=== PATIENT | male | born 1980 | race Caucasian/White ===

== ENCOUNTER 2021-01-25 10:00 | Inpatient (IN) | payer OTHER ==
[~2021-01-25] VITALS: Ht 182.9 cm; Wt 115.9 kg
[2021-01-25] MEDS ORDERED: PARO25TA8 PO (10:24)
[2021-01-25] MEDS ORDERED: LISI10TA22 PO ×2 (10:24→23:09)
[2021-01-25] MEDS ORDERED: PRAZ5CAP PO ×2 (10:24→23:09)
[2021-01-25] MEDS ORDERED: BACITRACIN OINTMENT 30GM TUBE TOP ONE (10:55)
[2021-01-25] MEDS ORDERED: BACITRACIN OINTMENT 30GM TUBE TOP PRN (10:55)
[2021-01-25 11:12] LABS: HEMATOCRIT 45.6 % (42.0-52.0); HEMOGLOBIN 15.7 g/dl (13.5-17.5); MEAN CORPUSCULAR HEMOGLOBIN 28.9 pg (27.0-33.0); MEAN CORPUSCULAR HGB CONC 34.4 g/dl (32.0-36.5); PLATELET COUNT, AUTOMATED 229 10^3/uL (150-450); RED BLOOD COUNT 5.43 10^6/uL (4.30-6.10); WHITE BLOOD COUNT 6.1 10^3/uL (4.0-10.0)
[2021-01-25 11:19] LABS: RSV AMPLIFICATION NEGATIVE (NEGATIVE)
[2021-01-25 11:39] LABS: AMPHETAMINES LEVEL URINE NEGATIVE (NEGATIVE); BARBITURATES URINE NEGATIVE (NEGATIVE); BENZODIAZEPINES URINE NEGATIVE (NEGATIVE); CANNABINOIDS URINE NEGATIVE (NEGATIVE); COCAINE METABOLITE URINE NEGATIVE (NEGATIVE); METHADONE URINE NEGATIVE (NEGATIVE); OPIATES URINE NEGATIVE (NEGATIVE); PHENCYCLIDINE URINE NEGATIVE (NEGATIVE)
[2021-01-25 11:45] LABS: ACETAMINOPHEN LEVEL < 2.0 UG/ML (10.0-30.0); ALBUMIN 4.6 GM/DL (3.2-5.2); ALT/SGPT 70 U/L (12-78); BILIRUBIN,DIRECT 0.1 MG/DL (0.0-0.2); BILIRUBIN,TOTAL 0.4 MG/DL (0.2-1.0); BLOOD UREA NITROGEN 14 MG/DL (7-18); CALCIUM LEVEL 9.4 MG/DL (8.5-10.1); CARBON DIOXIDE LEVEL 27 MEQ/L (21-32); CHLORIDE LEVEL 106 MEQ/L (98-107); CREATININE FOR GFR 0.99 MG/DL (0.70-1.30); ETHYL ALCOHOL (ETHANOL) < 0.003 % (0.000-0.010); GLOMERULAR FILTRATION RATE > 60.0 (>60); GLUCOSE, FASTING 114 MG/DL (70-100); POTASSIUM SERUM 4.5 MEQ/L (3.5-5.1); SALICYLATE LEVEL < 1.7 MG/DL (5.0-30.0); SODIUM LEVEL 139 MEQ/L (136-145); TOTAL PROTEIN 7.5 GM/DL (6.4-8.2)
[2021-01-25] MEDS ORDERED: PAXI10TA12 PO (23:09)
[2021-01-25] MEDS ORDERED: PAXI40TA10 PO (23:09)
[2021-01-25] MEDS ORDERED: OSTETAB2 PO (23:10)
[2021-01-25] MEDS ORDERED: FISH1000 PO (23:10)
[2021-01-25] MEDS ORDERED: GNPTAB94 PO (23:10)
[2021-01-25] MEDS ORDERED: SFHIBU200 PO (23:10)
[2021-01-25] MEDS ORDERED: HOME MED LIST COMPLETE! XX SCH (23:10)
[2021-01-25] MEDS ORDERED: VITMTA PO (23:10)
[2021-01-25] MEDS ORDERED: RA T500C2 PO (23:10)
[2021-01-26] MEDS ORDERED: NICO2LOZ8 MT (00:03)
[2021-01-26] MEDS ORDERED: BEAN300T PO (00:03)
[2021-01-26] MEDS ORDERED: MAALOX 30 ML SUSP *UDC PO PRN (00:15)
--- OUTSIDE RECORDS SUMMARY | 2021-01-26 00:23 | CCD ---
Author Author [facility] [place] [facility] Address Unknown Phone Unavailable Support Name Relationship Address Phone [facility] Next Of Kin [address] [place] [address] Unavailable Re-disclosure Warning The records that you are about to access may contain information from federally-assisted alcohol or drug abuse programs. If such information is present, then the following federally mandated warning applies: This information has been disclosed to you from records protected by federal confidentiality rules (42 CFR part 2). The federal rules prohibit you from making any further disclosure of this information unless further disclosure is expressly permitted by the written consent of the person to whom it pertains or as otherwise permitted by 42 CFR part 2. A general authorization for the release of medical or other information is NOT sufficient for this purpose. The Federal rules restrict any use of the information to criminally investigate or prosecute any alcohol or drug abuse patient.The records that you are about to access may contain highly sensitive health information, the redisclosure of which is protected by Article 27-F of the [facility] Public Health law. If you continue you may have access to information: Regarding HIV / AIDS; Provided by facilities licensed or operated by the [facility] Office of Mental Health; or Provided by the [facility] Office for People With Developmental Disabilities. If such information is present, then the following [facility] mandated warning applies: This information has been disclosed to you from confidential records which are protected by state law. State law prohibits you from making any further disclosure of this information without the specific written consent of the person to whom it pertains, or as otherwise permitted by law. Any unauthorized further disclosure in violation of state law may result in a fine or shelter sentence or both. A general authorization for the release of medical or other information is NOT sufficient authorization for further disc losure. Immunizations Vaccine Date Status Description Data Source(s) COVID-19 VACCINE Pfizer 05/12/2020 12:00:00 AM EDT completed [facility] Vaccine Series Complete: NOThis Data was Submitted to [facility] Via [employer]. Medications No Information Insurance Providers Payer name Policy type / Coverage type Policy ID Covered constitution party ID Covered constitution party's relationship to chahal Policy Chahal Plan Information [facility] [id number] Problems, Conditions, and Diagnoses No Information Surgeries/Procedures No Information Results ID Date Data Source [id number] 03/03/2020 10:17:00 AM EST [facility] Name Value Range Interpretation Code Description Data Dominga rce(s) Supporting Document(s) SARS coronavirus 2 RNA Not Detected [facility] This lab was ordered by [facility] and reported by [facility]. Procedure Social History No Information
[2021-01-26 02:43] VITALS: BP 140/93
[2021-01-26] MEDS: ACETAMINOPHEN TAB 650MG DOSE (2X325MG) PO PRN ×2 (04:57→21:38)
[2021-01-26 06:55] VITALS: BP 123/73
[2021-01-26] MEDS ORDERED: IBUPROFEN 800 MG TAB PO PRN (07:50)
[2021-01-26] MEDS ORDERED: SERTRALINE HCL 50 MG TAB PO SCH (09:00)
[2021-01-26] MEDS: MULTIVITAMINS/MINERALS THERAP 1 TAB PO SCH (09:55)
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
--- NOTE | 2021-01-26 11:58 | HPEPDOC ---
[facility] Medical History & Physical Date of Admission Jan 25, 2021 Date of Service: Jan 26, 2021 Attending Physician: Jeaneth Diane MD History and Physical MEDICAL H&P HISTORY OF PRESENT ILLNESS: Patient is a 40-year-old male with past medical history of major depressive disorder, PTSD, tobacco use who presented to [facility] emergency room after having suicidal thoughts. The patient states he has been having these thoughts for some time; however, with recent increase of work stress and what he feels is a lack of support the patient decided to fit a noose around his neck 01/25/2021. 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 He also attempted to burn himself to relieve his frustrations and squelch these intrusive thoughts. The patient went to see his behavioral health specialist and they recommended coming to [facility] for further treatment. The patient was later admitted for unspecified depressive disorder to inpatient mental health. During my examination the patient admitted to feeling depressive and intrusive thoughts, feeling hopeless and helpless. The patient states he does not feel very positive that inpatient treatment will help his thoughts as they are severe. He denies visual or auditory hallucinations. His support system is mostly out of state with his family. He currently denies suicidal ideations today. He admits to having chronic sinus infections since he was a child. He states he has had increased nasal discharge of a green and sometimes bloody color if he blows his nose too much. He denies chest pain, shortness of breath, fevers, chills, nausea, vomiting, diarrhea. REVIEW OF SYSTEMS: CONSTITUTIONAL: Denies unexplained weight gain or weight loss, fever, night sweats EYES: Denies eye drainage, eye pain, visual changes, dry/irritated eye EARS, NOSE, MOUTH, THROAT: Denies difficulty hearing, ringing in ears, mouth sores, loose teeth, sore throat, facial numbness or pain NECK: Denies swollen glands CARDIOVASCULAR: Denies irregular heartbeat, racing heart, chest pains, swelling of feet or legs, pain in legs with walking RESPIRATORY: Denies shortness of breath, night sweats, wheezing, sputum production, oxygen at home, coughing up blood, cough lasting > 1 month GASTROINTESTINAL: Denies abdominal pain, constipation, bloody stool, diarrhea, heartburn, nausea, vomiting GENITOURINARY: Denies painful urination, bloody urine, frequent urination, urgency, leaking urine, impotence MUSCULOSKELETAL: Denies joint pain, muscle pain, leg swelling INTEGUMENTARY: Denies rash, itching, new skin lesion, change in existing skin lesion, hair loss or increase, breast changes. NEUROLOGICAL: Denies headaches, dizziness, difficulty walking, numbness or tingling PSYCHIATRIC: Denies hallucinations PAST MEDICAL HISTORY: MDD Anxiety PTSD tobacco use PAST SURGICAL HISTORY: Septum deviation surgery FAMILY HISTORY: Paternal grandmothercolon cancer. . SOCIAL HISTORY: Tobacco use for greater than 1 year, dipping and vaping with cigarettes. The patient states to have occasional/social alcohol use but has been avoiding it recently due to his intrusive thoughts. He denies illicit drug use. 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 ALLERGIES: Please see below. HOME MEDICATIONS: Please see below. PHYSICAL EXAMINATION: VS: Stable on RA CONSTITUTIONAL: No acute distress, resting comfortably, AAO x 3 EYES: PERRLA, EOM intact HENT, MOUTH: Normocephalic, atraumatic, moist mucous membranes, NECK: SUPPLE, no JVD, no lymphadenopathy, no carotid bruit CV: Regular rate and rhythm, S1S2 normal, no murmurs/rubs/gallops RESPIRATORY: Clear to auscultation bilaterally, no rales/rhonchi/wheezes GI: BS positive in 4 quadrants, soft, nontender, nondistended, no rebound or guarding, no organomegaly : Deferred MUSCULOSKELETAL: Normal ROM. No cyanosis, clubbing, swelling, joint deformity, extremity edema INTEGUMENTARY: 1.5 inch x 1 inch burn on the dorsum of the left hand, one fluid- filled blister, nonsuppurative, mild erythema without warmth. Skin is otherwise intact, without rashes. NEUROLOGIC: Cranial Nerves II-XII are intact, no focal deficits PSYCHIATRIC: Mood and affect are normal LABORATORY DATA: Please see below IMAGING: None ASSESSMENT: 40-year-old male with past medical history of major depressive disorder admitted to inpatient mental health with unspecified depressive disord er, suicidal ideations. PLAN: Unspecified depressive disorder, suicidal ideation -Plan per psychiatry team PTSD -Plan per psychiatry team Sinus infection, acute on chronic -Denies fevers but admits to nasal discharge, green in color. -Doxycycline x5-7 days, Mucinex DISPOSITION: Thank you kindly for this consult. At this time I will sign off but if we are needed again please do not hesitate to call at any time. Vital Signs Vital Signs Date Time Temp Pulse Resp B/P (MAP) Pulse Ox O2 Delivery O2 Flow Rate FiO2 01/26/21 08:26 Room Air 01/26/21 06:55 97.2 52 18 123/73 (90) 96 Home Medications Scheduled Calcium Carb/D3/Magnesium/Zinc (Aleksandar Mag Zinc-D3 Tablet) 1 Each Tablet, 1 TAB PO DAILY Glucosam/Helder-Msm1/C/Dylon/Bosw (Osteo Bi-Flex Caplet) 1 Each Tablet, 1 TAB PO DAILY Lisinopril (Lisinopril) 10 Mg Tablet, 10 MG PO QHS Multivitamins (Thera M Plus Tablet) 1 Each Tablet, 1 TAB PO DAILY [place]-3 Fatty Acids/Fish Oil (Fish Oil 1,000 mg Capsule) 1 Each Capsule, 1,000 MG PO DAILY Paroxetine HCl (Paxil) 10 Mg Tablet, 10 MG PO QHS TAKES WITH 40MG FOR 50MG TOTAL Paroxetine HCl (Paxil) 40 Mg Tablet, 40 MG PO QHS TAKES WITH 10MG FOR 50MG TOTAL Prazosin Hcl (Prazosin HCl) 5 Mg Capsule, 5 MG PO QHS Turmeric Root Extract (Turmeric) 500 Mg Capsule, 500 MG PO DAILY Scheduled PRN [id number]-N-Vxuathuiltcvz (Beano) 400 Unit Tablet, 400 UNIT PO WM PRN for BLOATING Ibuprofen (Ibuprofen) 200 Mg Tablet, 800 MG PO TID PRN for MODERATE PAIN (PS 5- 7) Nicotine Polacrilex (Nicorette) 2 Mg Lozenge, 2 MG MT ASDIRECTED PRN for SMOKING CESSATION Allergies Coded Allergies: cefaclor (Verified Allergy, Mild, hives, 01/25/21) A-FIB/CHADSVASC A-FIB History Current/History of A-Fib/PAF?: No Current PO Anticoag Therapy: No Age/Risk Factor Scoring CHADSVASC: CHADSVASC Response (Comments) Value Age Risk Factor Age < 65 years old 0 Gender Risk Factor Male 0 Hx of CHF No 0 Hx of HTN Yes 1 Hx of Stroke/TIA/or VTE No 0 Hx of Diabetes No 0 Hx of Vascular Disease No 0 Total 1 Jeaneth Diane MD Jan 26, 2021 11:58
[2021-01-26] MEDS: DOXYCYCLINE HYCLATE 100MG TABLET PO SCH ×2 (13:47→21:38)
[2021-01-26] MEDS: guaiFENesin ER 600 MG TAB PO SCH ×2 (13:47→21:38)
[2021-01-26 18:40] VITALS: BP 148/80
[2021-01-26] MEDS ORDERED: PARoxetine 20MG TABLET PO SCH (21:00)
[2021-01-26] MEDS ORDERED: PARoxetine 10MG TABLET PO SCH (21:00)
[2021-01-26] MEDS: PRAZOSIN 1 MG CAP PO SCH (21:37)
[2021-01-26] MEDS: ARIPiprazole 2 MG TAB PO SCH (21:38)
--- NOTE | 2021-01-26 23:29 | ECGEPIP ---
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
[2021-01-27 06:00] VITALS: BP 133/69
[2021-01-27 08:34] LABS: CHOLESTEROL RISK RATIO 6.592 (<5)
[2021-01-27] MEDS: MULTIVITAMINS/MINERALS THERAP 1 TAB PO SCH (08:52)
[2021-01-27] MEDS: guaiFENesin ER 600 MG TAB PO SCH ×2 (08:52→20:53)
[2021-01-27] MEDS: ACETAMINOPHEN TAB 650MG DOSE (2X325MG) PO PRN ×2 (08:53→22:55)
[2021-01-27] MEDS: DOXYCYCLINE HYCLATE 100MG TABLET PO SCH ×2 (08:53→20:53)
[2021-01-27] MEDS: NICOTINE POLACRILEX 2 MG GUM PO PRN ×2 (08:54→20:52)
[2021-01-27] MEDS ORDERED: PARoxetine 20MG TABLET PO SCH (09:00)
[2021-01-27] MEDS ORDERED: INFLUENZA QUADRIVALENT PF VACCINE 0.5ML SYRINGE IM ONE (09:00)
--- NOTE | 2021-01-27 11:27 | MHIPNPDOC ---
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 Reports talked to post adoption coordinator "I vented for 30 minutes about argument with labor crew supervisor, I was really angry, the next day on Thanksgiving was perseverating on argument I had with labor crew supervisor, was panicking about consequences, back and forth between anger and panic, felt worthless, I had a bad panic attack,, made a noose, testing the weight and gaging, and then was burning myself to get a bump of adrenaline". States feels burned out all the time by the stress. Had told therapist at [facility] and was brought by EMS to [facility] ED. Has been with LEONCIO since 2015. Reports anxiety started to become a problem when he got back from deployment in 2013. Reports panic attacks, poor concentration, dissociative symptoms "I was driving driving down [address], didn't remember where I was going, or doing". Acute stressors include work stress, "dealing with labor crew supervisor, he makes bullying comments", states recently also pulled out weapons from a soldier's room leading to a stressful day, chronic stressor includes father passing away in early Jan 2017 "I don't like the holidays around this time of year, he had MS and was on hospice", had SI with thoughts of hanging self in context of drinking heavily around time father passed, has been sober since 6 months since brother was drinking excessively. Interval: Patient continues to report that he is "still down" and suicidal, endorses feelings of worthlessness, states he had a good chat with one of the nurses about the [facility] for PTSD, is being treated for sinus infection having "coughed up green gunk", VITAL SIGNS: See below. NEW TEST RESULTS: See below, tags of 216, LDL of 108, both elevated CURRENT MEDICATIONS: See below. 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 Language skills are intact Thought processes including: Linear, logical. Thought content: Endorses suicidal ideations and intent, denies specific plan. Denies homicidal ideation, intent or plan. Abstract reasoning, and computation: Good description of associations: Good Description of abnormal or psychotic thoughts: Denies, mild paranoia in context of hypervigilance Judgment: Poor, improving Insight: Fair Orientation: X4. Recent and remote memory: Intact Attention span and concentration: Mildly decreased in context of anxiety. Language: Mongolian Fund of knowledge: Above average based on interview Mood: "Still bumming". Affect: Anxious, dysthymic, very constricted, hypervigilant DIAGNOSES: PTSD, severe, with dissociations MDD, recurrent, moderate with anxious distress Tobacco use ASSESSMENT: Patient continues to be severely depressed, withdrawn and endorsed suicidal ideation without clear plan, needs extended stay for acute stabilization. His possibly agreeable to long-term treatment but wants to have further discussion with social work, social work made aware. Discussed chronic stressors of being in the , interactions with command, and managing PTSD symptoms. Discussed treatments including exposure therapy which may be helpful for him in the long-term. Patient contracts for safety on the unit. Reports tolerated medications without side effects, denies acute physical complaints apart from sinus infection. MANAGEMENT PLAN: Per hospitalist and has Mucinex and doxycycline antibiotics for sinus infection, agrees to have Paxil switched to nighttime due to sedation, agrees to continue Abilify and other medications, will receive flu shot, low- cholesterol diet due to elevated triglycerides and LDL cholesterol. TIME SPENT: 25 minutes. Vital Signs Vital Signs Date Time Temp Pulse Resp B/P (MAP) Pulse Ox O2 Delivery O2 Flow Rate FiO2 01/27/21 06:00 97.7 68 14 133/69 (90) 95 01/26/21 08:26 Room Air Laboratory Data 24H Labs Laboratory Tests 2 01/27/21 07:46: Triglycerides Level 216H, Total Cholesterol 178, LDL Cholesterol 108H, Non-HDL Cholesterol (LDL + VLDL) 151, Total HDL Cholesterol 27L, Cholesterol/HDL Ratio 6.592H Current Medications Current Medications Medications (Trade) Dose Ordered Sig/Daniel Route PRN Reason Start Time Stop Time Status Last Admin Dose Admin Acetaminophen (Tylenol Tab) 650 mg Q6HP PRN PO HEADACHE or MILD DISCOMFORT 01/26/21 00:15 01/27/21 08:53 Al Hydrox/Mg Hydrox/Simethicone (Mylanta) 30 ml Q4HP PRN PO HEARTBURN/INDIGESTION 01/26/21 00:15 Aripiprazole (AbiLIFY) 2 mg QHS PO 01/26/21 21:00 01/26/21 21:38 Bacitracin (Bacitracin Oint) 1 dose DAILYPRN PRN TOP ONCE 01/25/21 10:55 01/25/21 11:06 DC Doxycycline Hyclate (Vibramycin) 100 mg BID PO 01/26/21 09:00 01/27/21 08:53 Guaifenesin (Mucinex Tab Er) 600 mg BID PO 01/26/21 09:00 01/27/21 08:52 Home Med (Home Med List Complete!) ASDIRECTED XX 01/25/21 23:10 01/25/21 23:11 DC Ibuprofen (Advil) 800 mg TID PRN PO MODERATE PAIN (PS 5-7) 01/26/21 07:50 Lisinopril (Prinivil) 10 mg QHS PO 01/26/21 21:00 01/26/21 21:37 Magnesium Hydroxide (Milk Of Magnesia) 30 ml DAILYPRN PRN PO CONSTIPATION 01/26/21 00:15 Multivitamins (Theragram-M) 1 tab DAILY PO 01/26/21 09:00 01/27/21 08:52 Nicotine (Nicorette) 2 mg Q2HP PRN PO NICOTINE WITHDRAWAL 01/26/21 07:50 01/27/21 08:54 Paroxetine HCl (PAXil) 10 mg QHS PO 01/26/21 21:00 Cancel Paroxetine HCl (PAXil) 40 mg QHS PO 01/26/21 21:00 Cancel Paroxetine HCl (PAXil) 60 mg DAILY PO 01/27/21 09:00 01/27/21 08:33 DC Paroxetine HCl (PAXil) 60 mg QHS PO 01/27/21 21:00 Prazosin HCl (Minipress) 5 mg QHS PO 01/26/21 21:00 01/26/21 21:37 Sertraline HCl (Zoloft) 50 mg DAILY PO 01/26/21 09:00 Cancel Trazodone HCl (Desyrel) 50 mg QHSP PRN PO INSOMNIA 01/26/21 00:15 Allergies Coded Allergies: cefaclor (Verified Allergy, Mild, hives, 01/25/21) CLARKE ROUSE MD Jan 27, 2021 11:27
[2021-01-27 17:46] VITALS: BP 142/91
[2021-01-27] MEDS: MOM 30ML SUSPENSION UDC PO PRN (20:51)
[2021-01-27] MEDS: ARIPiprazole 2 MG TAB PO SCH (20:52)
[2021-01-27] MEDS: traZODone 50 MG TAB PO PRN (20:52)
[2021-01-27] MEDS: PARoxetine 20MG TABLET PO SCH (20:52)
[2021-01-27] MEDS: PRAZOSIN 1 MG CAP PO SCH (20:53)
[2021-01-28 06:29] VITALS: BP 138/65
[2021-01-28] MEDS: guaiFENesin ER 600 MG TAB PO SCH ×2 (08:52→21:04)
[2021-01-28] MEDS: DOXYCYCLINE HYCLATE 100MG TABLET PO SCH ×2 (08:52→21:04)
[2021-01-28] MEDS: MULTIVITAMINS/MINERALS THERAP 1 TAB PO SCH (08:52)
--- NOTE | 2021-01-28 11:20 | MHIPNPDOC ---
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 Reports talked to store coordinator "I vented for 30 minutes about argument with supervisor cloth winding, I was really angry, the next day on Thanksgiving was perseverating on argument I had with supervisor cloth winding, was panicking about consequences, back and forth between anger and panic, felt worthless, I had a bad panic attack,, made a noose, testing the weight and gaging, and then was burning myself to get a bump of adrenaline". States feels burned out all the time by the stress. Had told therapist at [facility] and was brought by EMS to [facility] ED. Has been with LEONCIO since 2015. Reports anxiety started to become a problem when he got back from deployment in 2013. Reports panic attacks, poor concentration, dissociative symptoms "I was driving driving down [address], didn't remember where I was going, or doing". Acute stressors include work stress, "dealing with supervisor cloth winding, he makes bullying comments", states recently also pulled out weapons from a soldier's room leading to a stressful day, chronic stressor includes father passing away in early Jan 2017 "I don't like the holidays around this time of year, he had MS and was on hospice", had SI with thoughts of hanging self in context of drinking heavily around time father passed, has been sober since 6 months since brother was drinking excessively. 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 and having to deal with command regarding management of the situation, feeling overwhelmed by this and has also been thinking about similar traumatic events in his life, reports this leads to hypervigilance symptoms and anxiety but medications are helping a little bit, overall feels "on edge", but was receptive to behavioral interventions including deep breathing exercises, noticing that it helps relieve some sensation of anxiety, also talked about using a cold cloth on forehead when feeling anxious and is agreeable to as needed hydroxyzine which she will try not to use unless absolutely necessary, as he wants to work on sitting with anxiety as a means of coping rather than avoidance. Discussed ways in which he may approach therapy long-term, including gradual exposure as this is the main treatment for PTSD in combination with medications which she is tolerating well without side effects, feels that taking Paxil at night has been helpful as he is not feeling as sedated in the morning. No other acute physical complaints reported. Sleep continues to be improved at 7-8 hours nightly and appetite is normal. Had attended a group yesterday. VITAL SIGNS: See below. NEW TEST RESULTS: See below CURRENT MEDICATIONS: See below. 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 Language skills are intact Thought processes including: Linear, logical. Thought content: Endorses suicidal ideations and intent, denies specific plan. Denies homicidal ideation, intent or plan. Abstract reasoning, and computation: Good description of associations: Good Description of abnormal or psychotic thoughts: Denies, mild paranoia in context of hypervigilance Judgment: Improving Insight: Improving Orientation: X4. Recent and remote memory: Intact Attention span and concentration: Fair, improved Language: Ecuadorean Fund of knowledge: Above average based on interview Mood: "On edge". Affect: Anxious, constricted, hypervigilant, mood congruent and appropriate DIAGNOSES: PTSD, severe, with dissociations MDD, recurrent, moderate with anxious distress Tobacco use ASSESSMENT: Patient is agreeable to long-term treatment through the , made aware that on Monday will be transferred, endorses continuing to have anxiety and depression symptoms but is no longer reporting suicidal ideations today, reports he is tolerating medications well without side effects, and wants to continue Paxil in the evenings. Pending placement on Monday to long-term treatment with the in [place]. MANAGEMENT PLAN: Per hospitalist and has Mucinex and doxycycline antibiotics for sinus infection, continue Paxil at nighttime due to sedation, agrees to continue Abilify and other medications, received flu shot, low-cholesterol diet due to elevated triglycerides and LDL cholesterol. TIME SPENT: 30 minutes. Vital Signs Vital Signs Date Time Temp Pulse Resp B/P (MAP) Pulse Ox O2 Delivery O2 Flow Rate FiO2 01/28/21 06:29 97.3 64 20 138/65 (89) 97 01/26/21 08:26 Room Air Current Medications Current Medications Medications (Trade) Dose Ordered Sig/Daniel Route PRN Reason Start Time Stop Time Status Last Admin Dose Admin Acetaminophen (Tylenol Tab) 650 mg Q6HP PRN PO HEADACHE or MILD DISCOMFORT 01/26/21 00:15 01/27/21 22:55 Al Hydrox/Mg Hydrox/Simethicone (Mylanta) 30 ml Q4HP PRN PO HEARTBURN/INDIGESTION 01/26/21 00:15 Aripiprazole (AbiLIFY) 2 mg QHS PO 01/26/21 21:00 01/27/21 20:52 Bacitracin (Bacitracin Oint) 1 dose DAILYPRN PRN TOP ONCE 01/25/21 10:55 01/25/21 11:06 DC Doxycycline Hyclate (Vibramycin) 100 mg BID PO 01/26/21 09:00 01/28/21 08:52 Guaifenesin (Mucinex Tab Er) 600 mg BID PO 01/26/21 09:00 01/28/21 08:52 Home Med (Home Med List Complete!) ASDIRECTED XX 01/25/21 23:10 01/25/21 23:11 DC Hydroxyzine HCl (Atarax) 50 mg Q6H PO 01/28/21 12:00 Ibuprofen (Advil) 800 mg TID PRN PO MODERATE PAIN (PS 5-7) 01/26/21 07:50 Lisinopril (Prinivil) 10 mg QHS PO 01/26/21 21:00 01/27/21 20:53 Magnesium Hydroxide (Milk Of Magnesia) 30 ml DAILYPRN PRN PO CONSTIPATION 01/26/21 00:15 01/27/21 20:51 Multivitamins (Theragram-M) 1 tab DAILY PO 01/26/21 09:00 01/28/21 08:52 Nicotine (Nicorette) 2 mg Q2HP PRN PO NICOTINE WITHDRAWAL 01/26/21 07:50 01/27/21 20:52 Paroxetine HCl (PAXil) 10 mg QHS PO 01/26/21 21:00 Cancel Paroxetine HCl (PAXil) 40 mg QHS PO 01/26/21 21:00 Cancel Paroxetine HCl (PAXil) 60 mg DAILY PO 01/27/21 09:00 01/27/21 08:33 DC Paroxetine HCl (PAXil) 60 mg QHS PO 01/27/21 21:00 01/27/21 20:52 Prazosin HCl (Minipress) 5 mg QHS PO 01/26/21 21:00 01/27/21 20:53 Sertraline HCl (Zoloft) 50 mg DAILY PO 01/26/21 09:00 Cancel Trazodone HCl (Desyrel) 50 mg QHSP PRN PO INSOMNIA 01/26/21 00:15 01/27/21 20:52 Allergies Coded Allergies: [email or web address] (Verified Allergy, Mild, hives, 01/25/21) CLARKE ROUSE MD Jan 28, 2021 11:20
[2021-01-28] MEDS: hydrOXYzine 50 MG TAB PO SCH ×3 (13:17→23:37)
[2021-01-28] MEDS: NICOTINE POLACRILEX 2 MG GUM PO PRN (17:34)
[2021-01-28 18:14] VITALS: BP 158/89
[2021-01-28] MEDS: ARIPiprazole 2 MG TAB PO SCH (21:03)
[2021-01-28] MEDS: PARoxetine 20MG TABLET PO SCH (21:03)
[2021-01-28] MEDS: PRAZOSIN 1 MG CAP PO SCH (21:04)
[2021-01-28] MEDS: traZODone 50 MG TAB PO PRN (23:37)
[2021-01-28] MEDS: ACETAMINOPHEN TAB 650MG DOSE (2X325MG) PO PRN (23:38)
[2021-01-29] MEDS: hydrOXYzine 50 MG TAB PO SCH ×3 (06:03→17:38)
[2021-01-29 07:22] VITALS: BP 108/57
[2021-01-29] MEDS: guaiFENesin ER 600 MG TAB PO SCH ×2 (08:36→20:08)
[2021-01-29] MEDS: MULTIVITAMINS/MINERALS THERAP 1 TAB PO SCH (08:36)
[2021-01-29] MEDS: DOXYCYCLINE HYCLATE 100MG TABLET PO SCH ×2 (08:36→20:08)
[2021-01-29] MEDS: NICOTINE POLACRILEX 2 MG GUM PO PRN ×2 (08:37→20:07)
--- NOTE | 2021-01-29 11:03 | MHIPNPDOC ---
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 Reports talked to adult daycare coordinator "I vented for 30 minutes about argument with smoke jumper supervisor, I was really angry, the next day on Thanksgiving was perseverating on argument I had with smoke jumper supervisor, was panicking about consequences, back and forth between anger and panic, felt worthless, I had a bad panic attack,, made a noose, testing the weight and gaging, and then was burning myself to get a bump of adrenaline". States feels burned out all the time by the stress. Had told therapist at [facility] and was brought by EMS to [facility] ED. Has been with LEONCIO since 2015. Reports anxiety started to become a problem when he got back from deployment in 2013. Reports panic attacks, poor concentration, dissociative symptoms "I was driving driving down [address], didn't remember where I was going, or doing". Acute stressors include work stress, "dealing with smoke jumper supervisor, he makes bullying comments", states recently also pulled out weapons from a soldier's room leading to a stressful day, chronic stressor includes father passing away in early Jan 2017 "I don't like the holidays around this time of year, he had MS and was on hospice", had SI with thoughts of hanging self in context of drinking heavily around time father passed, has been sober since 6 months since brother was drinking excessively. Interval: Patient reports he is tolerating medications well and that he is no longer acutely suicidal, states he had had the thoughts and someone time he shirt around her neck but states he has no intent or plan, reports being groggy after taking Atarax and trazodone, educated how the medication may have additive antihistamine effects with his Paxil which was increased to 60 mg nightly, but states that despite having increased sedation has had less muscle tension and wants to continue on current regimen. Denies any acute physical plates otherwise or other medication side effects. Appetite is normal, sleep is improved. Has been engaged in groups, discussed the possibility he may be transferred to long-term care on Monday and is agreeable with the plan. VITAL SIGNS: See below. NEW TEST RESULTS: See below CURRENT MEDICATIONS: See below. 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 Denies homicidal ideation, intent or plan. Abstract reasoning, and computation: Good description of associations: Good Description of abnormal or psychotic thoughts: Denies, mild paranoia in context of hypervigilance Judgment: Improving Insight: Improving Orientation: X4. Recent and remote memory: Intact Attention span and concentration: Fair, improved Language: Welsh Fund of knowledge: Above average based on interview Mood: "On edge". Affect: Less anxious, constricted, less hypervigilant DIAGNOSES: PTSD, severe, with dissociations MDD, recurrent, moderate with anxious distress Tobacco use ASSESSMENT: Reports having vague suicidal thoughts, no intent or plan. Patient can use to be agreeable to long-term treatment through the , made aware that on Monday will be likely transferred, reports improvement in anxiety and muscle tension in context of as needed medications including Atarax and trazodone has improved sleep, education provided about additive sedative antihistamine effects of medications which may be contribute to grogginess, despite this wants to continue on current regimen and continue to have as needed medications available. Reports sinus infection has improved with doxycycline. MANAGEMENT PLAN: Continue medications, no changes. Per hospitalist and has Mucinex and doxycycline antibiotics for sinus infection, continue Paxil at nighttime due to daytime sedation, agrees to continue Abilify and other medications, received flu shot, low-cholesterol diet due to elevated triglycerides and LDL cholesterol. TIME SPENT: 15 minutes. Vital Signs Vital Signs Date Time Temp Pulse Resp B/P (MAP) Pulse Ox O2 Delivery O2 Flow Rate FiO2 01/29/21 07:22 97.8 62 20 108/57 (74) 94 Room Air Current Medications Current Medications Medications (Trade) Dose Ordered Sig/Daniel Route PRN Reason Start Time Stop Time Status Last Admin Dose Admin Acetaminophen (Tylenol Tab) 650 mg Q6HP PRN PO HEADACHE or MILD DISCOMFORT 01/26/21 00:15 01/28/21 23:38 Al Hydrox/Mg Hydrox/Simethicone (Mylanta) 30 ml Q4HP PRN PO HEARTBURN/INDIGESTION 01/26/21 00:15 Aripiprazole (AbiLIFY) 2 mg QHS PO 01/26/21 21:00 01/28/21 21:03 Bacitracin (Bacitracin Oint) 1 dose DAILYPRN PRN TOP ONCE 01/25/21 10:55 01/25/21 11:06 DC Doxycycline Hyclate (Vibramycin) 100 mg BID PO 01/26/21 09:00 01/29/21 08:36 Guaifenesin (Mucinex Tab Er) 600 mg BID PO 01/26/21 09:00 01/29/21 08:36 Home Med (Home Med List Complete!) ASDIRECTED XX 01/25/21 23:10 01/25/21 23:11 DC Hydroxyzine HCl (Atarax) 50 mg Q6H PO 01/28/21 12:00 01/29/21 06:03 Ibuprofen (Advil) 800 mg TID PRN PO MODERATE PAIN (PS 5-7) 01/26/21 07:50 Lisinopril (Prinivil) 10 mg QHS PO 01/26/21 21:00 01/28/21 21:04 Magnesium Hydroxide (Milk Of Magnesia) 30 ml DAILYPRN PRN PO CONSTIPATION 01/26/21 00:15 01/27/21 20:51 Multivitamins (Theragram-M) 1 tab DAILY PO 01/26/21 09:00 01/29/21 08:36 Nicotine (Nicorette) 2 mg Q2HP PRN PO NICOTINE WITHDRAWAL 01/26/21 07:50 01/29/21 08:37 Paroxetine HCl (PAXil) 10 mg QHS PO 01/26/21 21:00 Cancel Paroxetine HCl (PAXil) 40 mg QHS PO 01/26/21 21:00 Cancel Paroxetine HCl (PAXil) 60 mg DAILY PO 01/27/21 09:00 01/27/21 08:33 DC Paroxetine HCl (PAXil) 60 mg QHS PO 12/1/21 21:00 01/28/21 21:03 Prazosin HCl (Minipress) 5 mg QHS PO 01/26/21 21:00 01/28/21 21:04 Sertraline HCl (Zoloft) 50 mg DAILY PO 01/26/21 09:00 Cancel Trazodone HCl (Desyrel) 50 mg QHSP PRN PO INSOMNIA 01/26/21 00:15 01/28/21 23:37 Allergies Coded Allergies: [email or web address] (Verified Allergy, Intermediate, hives, 01/28/21) CLARKE ROUSE MD Jan 29, 2021 11:03
[2021-01-29 19:01] VITALS: BP 136/74
[2021-01-29] MEDS: PARoxetine 20MG TABLET PO SCH (20:07)
[2021-01-29] MEDS: MOM 30ML SUSPENSION UDC PO PRN (20:07)
[2021-01-29] MEDS: ARIPiprazole 2 MG TAB PO SCH (20:08)
[2021-01-29] MEDS: PRAZOSIN 1 MG CAP PO SCH (20:08)
[2021-01-30] MEDS: hydrOXYzine 50 MG TAB PO SCH ×6 (00:58→23:23)
[2021-01-30 06:30] VITALS: BP 129/63
[2021-01-30] MEDS: guaiFENesin ER 600 MG TAB PO SCH ×2 (08:35→21:30)
[2021-01-30] MEDS: MULTIVITAMINS/MINERALS THERAP 1 TAB PO SCH (08:35)
[2021-01-30] MEDS: NICOTINE POLACRILEX 2 MG GUM PO PRN ×2 (08:35→21:34)
[2021-01-30] MEDS: ACETAMINOPHEN TAB 650MG DOSE (2X325MG) PO PRN (08:36)
[2021-01-30] MEDS: DOXYCYCLINE HYCLATE 100MG TABLET PO SCH ×2 (08:37→21:31)
[2021-01-30] MEDS ORDERED: SODIUM CHLORIDE NASAL 0.65% SPRAY BTL (OCEAN) PRN (12:30)
--- NOTE | 2021-01-30 14:35 | MHIPN ---
[facility] PROGRESS NOTE DATE: 01/30/2021 The patient states today, "I'm feeling really relaxed with the Atarax, and I slept good," but he says he is still feeling pretty depressed and having irritability. MENTAL STATUS EXAMINATION: He is alert and oriented times three. Eye contact is fair. Psychomotor activity is decreased. There is no formal thought disorder. Mood is depressed. Affect full range and appropriate. He is not psychotic, suicidal, homicidal. Concentration and memory are good. Insight and judgment good. DIAGNOSES: 1. Posttraumatic stress disorder, severe. 2. Major depressive disorder, recurrent, moderate with anxious distress. TREATMENT PLAN: At this point we will continue to monitor the patient for continued depression and for continued resolution of suicidal ideation, and we will titrate his medications as indicated.
[2021-01-30 18:00] VITALS: BP 129/75
[2021-01-30] MEDS: PRAZOSIN 1 MG CAP PO SCH (21:30)
[2021-01-30] MEDS: traZODone 50 MG TAB PO PRN (21:30)
[2021-01-30] MEDS: ARIPiprazole 2 MG TAB PO SCH (21:30)
[2021-01-30] MEDS: PARoxetine 20MG TABLET PO SCH (21:31)
[2021-01-30] MEDS: MOM 30ML SUSPENSION UDC PO PRN (21:35)
[2021-01-31] MEDS: hydrOXYzine 50 MG TAB PO SCH ×4 (05:33→22:59)
[2021-01-31 07:40] VITALS: BP 129/68
[2021-01-31] MEDS: guaiFENesin ER 600 MG TAB PO SCH ×2 (08:24→20:53)
[2021-01-31] MEDS: MULTIVITAMINS/MINERALS THERAP 1 TAB PO SCH (08:24)
[2021-01-31] MEDS: DOXYCYCLINE HYCLATE 100MG TABLET PO SCH ×2 (08:24→20:53)
[2021-01-31] MEDS: NICOTINE POLACRILEX 2 MG GUM PO PRN ×2 (08:25→20:53)
[2021-01-31 19:19] VITALS: BP 138/79
[2021-01-31] MEDS: traZODone 50 MG TAB PO PRN (20:52)
[2021-01-31] MEDS: PRAZOSIN 1 MG CAP PO SCH (20:52)
[2021-01-31] MEDS: MOM 30ML SUSPENSION UDC PO PRN (20:53)
[2021-01-31] MEDS: ARIPiprazole 2 MG TAB PO SCH (20:53)
[2021-01-31] MEDS: PARoxetine 20MG TABLET PO SCH (20:53)
[2021-02-01] MEDS: hydrOXYzine 50 MG TAB PO SCH ×5 (05:40→23:09)
[2021-02-01 06:40] VITALS: BP 156/92
[2021-02-01] MEDS: NICOTINE POLACRILEX 2 MG GUM PO PRN ×2 (08:57→20:52)
[2021-02-01] MEDS: guaiFENesin ER 600 MG TAB PO SCH ×2 (08:57→21:10)
[2021-02-01] MEDS: MULTIVITAMINS/MINERALS THERAP 1 TAB PO SCH (08:57)
[2021-02-01] MEDS: DOXYCYCLINE HYCLATE 100MG TABLET PO SCH (08:57)
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
[2021-02-01] MEDS: ACETAMINOPHEN TAB 650MG DOSE (2X325MG) PO PRN (10:03)
[2021-02-01] MEDS ORDERED: PARO20TA3 PO (15:43)
[2021-02-01] MEDS ORDERED: TRAZ-252 PO (15:43)
[2021-02-01] MEDS ORDERED: HYDR50TA70 PO (15:43)
[2021-02-01] MEDS ORDERED: NICO2GUM PO (15:43)
[2021-02-01] MEDS ORDERED: MUCI600T31 PO (15:43)
[2021-02-01] MEDS ORDERED: NICO2LOZ8 MT (15:43)
[2021-02-01] MEDS ORDERED: ABIL1TAB13 PO (15:43)
[2021-02-01] MEDS ORDERED: PRAZ5CAP PO (15:43)
[2021-02-01 16:20] VITALS: BP 126/69
[2021-02-01] MEDS: PARoxetine 20MG TABLET PO SCH (20:49)
[2021-02-01] MEDS: MOM 30ML SUSPENSION UDC PO PRN (20:52)
[2021-02-01] MEDS: traZODone 50 MG TAB PO PRN (20:52)
[2021-02-01 21:10] VITALS: BP 130/85
[2021-02-01] MEDS: PRAZOSIN 1 MG CAP PO SCH (21:10)
[2021-02-01] MEDS: ARIPiprazole 2 MG TAB PO SCH (21:10)
[2021-02-02] MEDS: hydrOXYzine 50 MG TAB PO SCH (05:55)
[2021-02-02 06:47] VITALS: BP 137/76
[2021-02-02] MEDS: guaiFENesin ER 600 MG TAB PO SCH (08:19)
[2021-02-02] MEDS: MULTIVITAMINS/MINERALS THERAP 1 TAB PO SCH (08:19)
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
== END 2021-02-02 09:10 | DRG 882 ==
LOC: M ED 10:00 → M ED INP 01-26 00:15 → M PSY 01-26 00:15
PROVIDERS: ADMIT Student in an Organized Health Care Education/Training Program; ATTEND Student in an Organized Health Care Education/Training Program
DX: F43.11 Post-traumatic stress disorder, acute (principal); F33.1 Major depressive disorder, recurrent, moderate; F17.200 Nicotine dependence, unspecified, uncomplicated; F41.9 Anxiety disorder, unspecified; Z79.899 Other long term (current) drug therapy; Z88.8 Allergy status to other drugs, medicaments and biological substances

== ENCOUNTER → 2021-10-26 | Outpatient (REF) ==
[~2021-10-26] MED LIST: ABIL1TAB13 PO; BEAN300T PO; FISH1000 PO; GNPTAB94 PO; HYDR50TA70 PO; LISI10TA22 PO; MUCI600T31 PO; NICO2GUM PO; NICO2LOZ8 MT; OSTETAB2 PO; PARO20TA3 PO; PARO25TA5 PO; PAXI10TA12 PO; PAXI40TA10 PO; PRAZ5CAP PO; RA T500C2 PO; SFHIBU200 PO; TRAZ-252 PO; VITMTA PO
== END ==
LOC: M PLAIMG 08:09
PROVIDERS: ATTEND Internal Medicine
DX: R06.02 Shortness of breath (principal)